=== PATIENT | male | born 1965 | race Caucasian/White ===

== ENCOUNTER 2021-11-05 06:56 | Inpatient (IN) | payer MEDICARE, MEDICAID ==
[~2021-11-05] VITALS: Ht 172.7 cm; Wt 103.9 kg
[2021-11-05] MEDS ORDERED: SODIUM CHLORIDE 0.9% 500 ML IV ONE (07:30)
[2021-11-05 08:11] LABS: BASOPHILS % 0.3 % (0.0-2.0); EOSINOPHILS % 0.1 % (0.0-5.0); LYMPHOCYTES % 9.6 % (20.0-50.0); MEAN CORPUSCULAR VOLUME 96.5 fL (80.0-94.0); MONOCYTES % 2.9 % (2.0-8.0); NEUTROPHILS % 87.1 % (40.0-76.0); PLATELET 123 x1000/uL (130-400); RED BLOOD CELL COUNT 1.83 mill/uL (4.7-6.1); RED CELL DISTRIBUTION WIDTH 18.3 % (11.6-14.6)
[2021-11-05 08:15] LABS: CHLORIDE 103 mEq/L (98-107)
[2021-11-05 08:16] LABS: HEMATOCRIT. 17.7 % (42.0-52.0); HEMOGLOBIN. 5.5 g/dL (14.0-18.0)
[2021-11-05 08:17] LABS: INR 1.8; PROTHROMBIN TIME 18.1 sec (9.6-11.0)
[2021-11-05 08:19] LABS: ETHANOL BLOOD < 10 mg/dL
[2021-11-05 08:23] LABS: CREATINE KINASE 124 IU/L (39-308)
[2021-11-05] MEDS ORDERED: VANCOMYCIN 1 G PREMIX 200 ML IV ONE (08:30)
[2021-11-05] MEDS ORDERED: PIPERACILLIN/TAZ 3.375G PREMIX 50 ML IV ONE (08:30)
[2021-11-05] MEDS ORDERED: NOREPINEPHRINE 8MG/250ML PMX 250 ML IV ONE (09:45)
[2021-11-05] MEDS ORDERED: CALCIUM GLUCONATE 1,000 MG in DEXT 5% WATER 100 ML IV ONE (10:30)
[2021-11-05] MEDS ORDERED: DEXTROSE 50% WATER 50ML SYRINGE IV ONE (10:30)
[2021-11-05] MEDS ORDERED: INSULIN REGULAR (HUMULIN R) 300UNITS/3ML VIAL IV ONE (10:30)
[2021-11-05] MEDS ORDERED: SODIUM BICARBONATE 8.4% 1 MEQ/ML 50ML SYR IV ONE (10:30)
[2021-11-05] MEDS: NOREPINEPHRINE 8 MG in DEXTROSE 5% WATER 250 ML IV PRN ×2 (10:34→17:57)
[2021-11-05] MEDS ORDERED: DEXTROSE 50% WATER 50ML SYRINGE IV PRN (12:15)
[2021-11-05] MEDS ORDERED: SODIUM CHLORIDE 0.9% 1,000 ML IV SCH (12:15)
[2021-11-05] MEDS ORDERED: ACETAMINOPHEN 325MG TABLET PO PRN (12:15)
[2021-11-05] MEDS ORDERED: CLONIDINE 0.1MG TABLET PO PRN (12:15)
[2021-11-05] MEDS ORDERED: ONDANSETRON HCL 4MG/2ML INJ IV PRN (12:15)
[2021-11-05] MEDS ORDERED: IPRATROPIUM/ALBUTEROL 0.5-3(2.5)MG/3ML NEB HHN PRN (12:15)
[2021-11-05] MEDS ORDERED: DIPHENHYDRAMINE 50MG/ML VIAL IV PRN (12:15)
[2021-11-05] MEDS ORDERED: AZITHROMYCIN 500MG/250ML 250 ML IV NR (12:30)
[2021-11-05] MEDS: BLOOD SUGAR DIAGNOSTIC STRIP TEST SCH ×3 (13:00→21:00)
[2021-11-05] MEDS ORDERED: CEFTRIAXONE 1 G PREMIX 50 ML IV NR (13:00)
[2021-11-05] MEDS: INSULIN LISPRO 100 UNITS/ML SUBCUT SCH ×3 (13:20→21:00)
[2021-11-05] MEDS ORDERED: SODIUM BICARBONATE 8.4% 1 MEQ/ML 50ML SYR IV NR (13:30)
[2021-11-05] MEDS: SODIUM BICARBONATE 150 MEQ in DEXTROSE 5% WATER 1,000 ML IV SCH (14:24)
[2021-11-05] MEDS ORDERED: PHENYLEPHRINE 100 MG in DEXT 5% WATER 240 ML IV PRN ×2 (14:45→17:45)
[2021-11-05 15:44] LABS: HEPATITIS B SURFACE ANTIGEN NEGATIVE
[2021-11-05] MEDS ORDERED: PANTOPRAZOLE 80 MG in SODIUM CHLORIDE 0.9% 100 ML IV SCH (18:45)
[2021-11-05] MEDS: OCTREOTIDE 1,000 MCG in SODIUM CHLORIDE 0.9% 100 ML IV PRN (18:59)
[2021-11-05 21:31] LABS: BASOPHILS % 0.2 % (0.0-2.0); HEMATOCRIT. 30.9 % (42.0-52.0); HEMOGLOBIN. 10.2 g/dL (14.0-18.0); LYMPHOCYTES % 7.2 % (20.0-50.0); MEAN CORPUSCULAR VOLUME 90.3 fL (80.0-94.0); MEAN PLATELET VOLUME 10.3 fl (7.4-10.4); MONOCYTES % 5.3 % (2.0-8.0); NEUTROPHILS % 87.3 % (40.0-76.0); PLATELET 109 x1000/uL (130-400); RED BLOOD CELL COUNT 3.42 mill/uL (4.7-6.1); RED CELL DISTRIBUTION WIDTH 15.9 % (11.6-14.6)
[2021-11-05 22:33] LABS: CHLORIDE 101 mEq/L (98-107)
[2021-11-05] MEDS ORDERED: NOREPINEPHRINE 8 MG in DEXTROSE 5% WATER 250 ML IV PRN (23:00)
[2021-11-06] VITALS (65 sets, daily range): BP systolic 85–173; BP diastolic 33–78
[2021-11-06 05:38] LABS: CHLORIDE 97 mEq/L (98-107)
[2021-11-06 05:39] LABS: BASOPHILS % 0.2 % (0.0-2.0); EOSINOPHILS % 0.3 % (0.0-5.0); HEMATOCRIT. 26.9 % (42.0-52.0); LYMPHOCYTES % 7.2 % (20.0-50.0); MEAN CORPUSCULAR HEMOGLOBIN 30.3 pg (28.0-32.0); MEAN CORPUSCULAR VOLUME 90.3 fL (80.0-94.0); MONOCYTES % 6.3 % (2.0-8.0); PLATELET 150 x1000/uL (130-400); RED BLOOD CELL COUNT 2.98 mill/uL (4.7-6.1); RED CELL DISTRIBUTION WIDTH 15.6 % (11.6-14.6)
[2021-11-06 05:44] LABS: PHOSPHORUS 5.7 mg/dL (2.5-4.9); TOTAL IRON BINDING CAPACITY 215 ug/dL (250-450)
[2021-11-06 07:48] LABS: FOLIC ACID (FOLATE) SERUM > 20.00 ng/mL (>5.38); VITAMIN B12 SERUM > 2000.0 pg/mL (211-911)
[2021-11-06] MEDS ORDERED: PANTOPRAZOLE SODIUM 40 MG/VIAL IV SCH (09:00)
[2021-11-06] MEDS ORDERED: FOLI1TAB63 PO (12:15)
[2021-11-06] MEDS ORDERED: ATOR20TA65 PO (12:16)
[2021-11-06] MEDS ORDERED: ISON300T19 PO (12:17)
[2021-11-06] MEDS ORDERED: TRAZ-251 PO (12:18)
[2021-11-06] MEDS ORDERED: PYRI50CA PO (12:18)
[2021-11-06] MEDS ORDERED: SEVE800T8 MT (12:19)
[2021-11-06] MEDS: BLOOD SUGAR DIAGNOSTIC STRIP TEST SCH ×3 (12:50→21:40)
[2021-11-06] MEDS ORDERED: AZITHROMYCIN 500 MG in DEXT 5% WATER 250 ML IV SCH (13:00)
[2021-11-06] MEDS ORDERED: CEFTRIAXONE 1,000 MG in DEXTROSE 5% WATER 50 ML IV SCH (13:00)
[2021-11-06] MEDS: INSULIN LISPRO 100 UNITS/ML SUBCUT SCH ×3 (13:20→21:00)
[2021-11-06] MEDS: OCTREOTIDE 1,000 MCG in SODIUM CHLORIDE 0.9% 100 ML IV PRN (13:56)
[2021-11-06] MEDS: CEFTRIAXONE 1,000 MG in DEXTROSE 5% WATER 50 ML IV SCH (13:56)
[2021-11-06] MEDS: AZITHROMYCIN 500 MG in DEXT 5% WATER 250 ML IV SCH (13:56)
[2021-11-06] MEDS: SODIUM BICARBONATE 150 MEQ in DEXTROSE 5% WATER 1,000 ML IV SCH (13:56)
[2021-11-06] MEDS: PHYTONADIONE 10MG/ML AMP SUBCUT SCH (13:57)
[2021-11-06 14:41] LABS: BG BASE EXCESS 0.9 mmol/L (-2.0-2.0); BG CARBOXYHEMOGLOBIN 0.7 % (0.5-1.5); BG DEOXYHEMOGLOBIN 7.9 % (0.0-5.0); BG FRACTION INSPIRED OXYGEN 21; BG HCO3 ACT 24.1 mmol/L (22.0-26.0); BG METHEMOGLOBIN 0.4 % (0.0-1.5); BG PCO2 32.1 mmHg (35.0-45.0); BG PH 7.493 (7.350-7.450); BG PO2 66.2 mmHg (75.0-100.0); BG SAMPLE SITE RIGHT RADIAL; BG VENT MODE ROOM AIR
[2021-11-06 16:05] LABS: HEMATOCRIT 22.7 % (42.0-52.0); HEMOGLOBIN 7.6 g/dL (14.0-18.0)
[2021-11-06 16:16] LABS: INR 2.2; PROTHROMBIN TIME 21.9 sec (9.6-11.0)
[2021-11-06] MEDS: PANTOPRAZOLE SODIUM 40 MG/VIAL IV SCH (18:01)
[2021-11-06 19:52] LABS: HEMOGLOBIN 6.6 g/dL (14.0-18.0)
[2021-11-06 19:53] LABS: HEMATOCRIT 19.5 % (42.0-52.0)
[2021-11-07] VITALS (90 sets, daily range): BP systolic 88–154; BP diastolic 36–71
[2021-11-07 06:06] LABS: HEMATOCRIT 26.3 % (42.0-52.0); HEMOGLOBIN 8.9 g/dL (14.0-18.0)
[2021-11-07] MEDS: OCTREOTIDE 1,000 MCG in SODIUM CHLORIDE 0.9% 100 ML IV PRN (08:16)
[2021-11-07] MEDS: BLOOD SUGAR DIAGNOSTIC STRIP TEST SCH ×4 (08:17→20:24)
[2021-11-07] MEDS: PHYTONADIONE 10MG/ML AMP SUBCUT SCH (08:17)
[2021-11-07] MEDS: INSULIN LISPRO 100 UNITS/ML SUBCUT SCH ×4 (08:17→20:24)
[2021-11-07] MEDS: PANTOPRAZOLE SODIUM 40 MG/VIAL IV SCH ×2 (08:17→17:27)
[2021-11-07 12:39] LABS: HEMATOCRIT 25.9 % (42.0-52.0); HEMOGLOBIN 8.8 g/dL (14.0-18.0)
[2021-11-07] MEDS: AZITHROMYCIN 500 MG in DEXT 5% WATER 250 ML IV SCH (13:24)
[2021-11-07] MEDS: CEFTRIAXONE 1,000 MG in DEXTROSE 5% WATER 50 ML IV SCH (13:24)
[2021-11-07] MEDS: SODIUM BICARBONATE 150 MEQ in DEXTROSE 5% WATER 1,000 ML IV SCH (13:33)
[2021-11-07] MEDS ORDERED: LORAZEPAM 2MG/ML CPJ IV PRN (16:15)
[2021-11-07] MEDS ORDERED: LEVETIRACETAM 500 MG in SODIUM CHLORIDE 0.9% 100 ML IV SCH (16:15)
[2021-11-07 16:26] LABS: BG BASE EXCESS 0.4 mmol/L (-2.0-2.0); BG CARBOXYHEMOGLOBIN 0.3 % (0.5-1.5); BG DEOXYHEMOGLOBIN 3.9 % (0.0-5.0); BG FRACTION INSPIRED OXYGEN 28; BG HCO3 ACT 24.5 mmol/L (22.0-26.0); BG METHEMOGLOBIN 0.3 % (0.0-1.5); BG OXYGEN SATURATION 96.1 % (92.0-98.5); BG OXYHEMOGLOBIN 95.5 % (94.0-97.0); BG PCO2 37.4 mmHg (35.0-45.0); BG PH 7.434 (7.350-7.450); BG SAMPLE SITE RIGHT RADIAL; BG TOTAL HEMOGLOBIN 9.6 g/dL (12.0-18.0); BG VENT MODE NASAL CANNULA
[2021-11-07 19:44] LABS: HEMATOCRIT 26.1 % (42.0-52.0); HEMOGLOBIN 8.6 g/dL (14.0-18.0)
[2021-11-07] MEDS: IPRATROPIUM/ALBUTEROL 0.5-3(2.5)MG/3ML NEB HHN SCH (20:21)
[2021-11-07] MEDS: LEVETIRACETAM 500MG PREMIX 100 ML IV SCH (20:24)
[2021-11-07] MEDS ORDERED: PANTOPRAZOLE SODIUM 40 MG/VIAL IV SCH (21:00)
[2021-11-08] VITALS (101 sets, daily range): BP systolic 75–137; BP diastolic 36–68
[2021-11-08 01:22] LABS: HEMATOCRIT 24.1 % (42.0-52.0); HEMOGLOBIN 8.3 g/dL (14.0-18.0)
[2021-11-08] MEDS: IPRATROPIUM/ALBUTEROL 0.5-3(2.5)MG/3ML NEB HHN SCH ×3 (02:16→14:29)
[2021-11-08 06:21] LABS: INR 1.6; PROTHROMBIN TIME 16.5 sec (9.6-11.0)
[2021-11-08] MEDS ORDERED: POTASSIUM CHLORIDE INJ 40 MEQ in DEXT 5% WATER 500 ML IV ONE (07:00)
[2021-11-08] MEDS: OCTREOTIDE 1,000 MCG in SODIUM CHLORIDE 0.9% 100 ML IV PRN (07:11)
[2021-11-08] MEDS: BLOOD SUGAR DIAGNOSTIC STRIP TEST SCH ×4 (07:58→20:13)
[2021-11-08] MEDS: INSULIN LISPRO 100 UNITS/ML SUBCUT SCH ×4 (07:58→20:13)
[2021-11-08] MEDS: KCL 20MEQ/100ML PREMIX 100 ML IV SCH ×2 (08:03→10:38)
[2021-11-08] MEDS: LEVETIRACETAM 500MG PREMIX 100 ML IV SCH ×2 (08:22→20:13)
[2021-11-08] MEDS: PANTOPRAZOLE SODIUM 40 MG/VIAL IV SCH (09:00)
[2021-11-08] MEDS ORDERED: CALCIUM GLUCONATE 1,000 MG in DEXT 5% WATER 90 ML IV ONE (09:00)
[2021-11-08] MEDS: PHYTONADIONE 10MG/ML AMP SUBCUT SCH (09:01)
[2021-11-08] MEDS ORDERED: MIDAZOLAM HCL 5 MG/5 ML VIAL ONE (09:55)
[2021-11-08] MEDS ORDERED: SIMETHICONE 40 MG/0.6 ML 30ML ONE (09:56)
[2021-11-08] MEDS ORDERED: FENTANYL CITRATE/PF 50MCG/ML 2ML VIAL ONE (09:56)
[2021-11-08] MEDS ORDERED: CALCIUM GLUCONATE 1GM PREMIX 50 ML IV SCH (10:00)
[2021-11-08] MEDS ORDERED: MIDAZOLAM HCL 5 MG/5 ML VIAL IV PRN (10:16)
[2021-11-08 11:42] LABS: BASOPHILS % 0.5 % (0.0-2.0); EOSINOPHILS % 3.4 % (0.0-5.0); HEMATOCRIT. 23.6 % (42.0-52.0); MEAN CORPUSCULAR HEMOGLOBIN 30.5 pg (28.0-32.0); MEAN CORPUSCULAR VOLUME 90.6 fL (80.0-94.0); MEAN PLATELET VOLUME 10.7 fl (7.4-10.4); MONOCYTES % 6.2 % (2.0-8.0); NEUTROPHILS % 75.9 % (40.0-76.0); RED BLOOD CELL COUNT 2.61 mill/uL (4.7-6.1); RED CELL DISTRIBUTION WIDTH 15.2 % (11.6-14.6)
[2021-11-08] MEDS: SODIUM BICARBONATE 150 MEQ in DEXTROSE 5% WATER 1,000 ML IV SCH (12:55)
[2021-11-08] MEDS: CEFTRIAXONE 1,000 MG in DEXTROSE 5% WATER 50 ML IV SCH (13:00)
[2021-11-08] MEDS: AZITHROMYCIN 500 MG in DEXT 5% WATER 250 ML IV SCH (13:00)
[2021-11-08 20:27] LABS: HEMOGLOBIN 8.4 g/dL (14.0-18.0)
[2021-11-09] VITALS (40 sets, daily range): BP systolic 88–148; BP diastolic 38–72
[2021-11-09 06:31] LABS: BASOPHILS % 0.6 % (0.0-2.0); EOSINOPHILS % 5.3 % (0.0-5.0); HEMATOCRIT. 23.3 % (42.0-52.0); MEAN CORPUSCULAR HEMOGLOBIN 31.2 pg (28.0-32.0); MEAN CORPUSCULAR VOLUME 90.2 fL (80.0-94.0); MEAN PLATELET VOLUME 10.5 fl (7.4-10.4); MONOCYTES % 8.3 % (2.0-8.0); NEUTROPHILS % 73.8 % (40.0-76.0); RED BLOOD CELL COUNT 2.58 mill/uL (4.7-6.1); RED CELL DISTRIBUTION WIDTH 15.3 % (11.6-14.6)
[2021-11-09 06:52] LABS: PHOSPHORUS 4.7 mg/dL (2.5-4.9)
[2021-11-09 06:57] LABS: PLATELET 32 x1000/uL (130-400)
[2021-11-09] MEDS ORDERED: POTASSIUM CHLORIDE 20MEQ TABLET SR PO SCH (08:00)
[2021-11-09] MEDS: BLOOD SUGAR DIAGNOSTIC STRIP TEST SCH ×4 (08:18→21:08)
[2021-11-09] MEDS: INSULIN LISPRO 100 UNITS/ML SUBCUT SCH ×4 (08:18→21:00)
[2021-11-09] MEDS: IPRATROPIUM/ALBUTEROL 0.5-3(2.5)MG/3ML NEB HHN SCH ×3 (08:41→21:24)
[2021-11-09] MEDS: PANTOPRAZOLE SODIUM 40 MG/VIAL IV SCH (08:46)
[2021-11-09] MEDS: LEVETIRACETAM 500MG PREMIX 100 ML IV SCH ×2 (08:47→21:08)
[2021-11-09] MEDS: SODIUM BICARBONATE 150 MEQ in DEXTROSE 5% WATER 1,000 ML IV SCH (08:48)
[2021-11-09] MEDS: DEXT 5%/0.9% NACL 1,000 ML IV SCH (10:00)
[2021-11-09] MEDS ORDERED: KCL 20MEQ/100ML PREMIX 100 ML IV SCH (10:00)
[2021-11-09] MEDS: MIDODRINE HCL 2.5MG TABLET PO SCH ×2 (13:00→17:00)
[2021-11-09 13:05] LABS: PLATELET 31 x1000/uL (130-400)
[2021-11-09] MEDS: PROPRANOLOL HCL 10MG TABLET PO SCH (17:00)
[2021-11-10] VITALS (12 sets, daily range): BP systolic 110–144; BP diastolic 47–63
[2021-11-10] MEDS: IPRATROPIUM/ALBUTEROL 0.5-3(2.5)MG/3ML NEB HHN SCH ×4 (02:02→20:34)
[2021-11-10] MEDS: INSULIN LISPRO 100 UNITS/ML SUBCUT SCH ×4 (08:00→21:00)
[2021-11-10] MEDS: PROPRANOLOL HCL 10MG TABLET PO SCH ×3 (08:10→17:00)
[2021-11-10] MEDS: BLOOD SUGAR DIAGNOSTIC STRIP TEST SCH ×4 (08:16→21:58)
[2021-11-10 08:52] LABS: BASOPHILS % 1.1 % (0.0-2.0); HEMATOCRIT. 24.7 % (42.0-52.0); HEMOGLOBIN. 8.4 g/dL (14.0-18.0); LYMPHOCYTES % 12.1 % (20.0-50.0); MEAN CORPUSCULAR HEMOGLOBIN 30.9 pg (28.0-32.0); MEAN CORPUSCULAR VOLUME 90.6 fL (80.0-94.0); MEAN PLATELET VOLUME 10.4 fl (7.4-10.4); MONOCYTES % 7.8 % (2.0-8.0); RED BLOOD CELL COUNT 2.73 mill/uL (4.7-6.1); RED CELL DISTRIBUTION WIDTH 16.1 % (11.6-14.6)
[2021-11-10 08:55] LABS: PHOSPHORUS 6.4 mg/dL (2.5-4.9)
[2021-11-10 09:07] LABS: PLATELET 39 x1000/uL (130-400)
[2021-11-10] MEDS: PANTOPRAZOLE SODIUM 40 MG/VIAL IV SCH (10:38)
[2021-11-10] MEDS: DEXT 5%/0.9% NACL 1,000 ML IV SCH (10:38)
[2021-11-10] MEDS: MIDODRINE HCL 2.5MG TABLET PO SCH ×3 (10:38→17:00)
[2021-11-10] MEDS: LEVETIRACETAM 500MG PREMIX 100 ML IV SCH ×2 (10:39→21:00)
[2021-11-10] MEDS: POTASSIUM CHLORIDE 20MEQ TABLET SR PO SCH (21:01)
[2021-11-11] VITALS (11 sets, daily range): BP systolic 98–148; BP diastolic 52–82
[2021-11-11] MEDS: IPRATROPIUM/ALBUTEROL 0.5-3(2.5)MG/3ML NEB HHN SCH ×4 (02:28→21:12)
[2021-11-11 07:14] LABS: EOSINOPHILS % 6.3 % (0.0-5.0); HEMATOCRIT. 25.1 % (42.0-52.0); HEMOGLOBIN. 8.5 g/dL (14.0-18.0); LYMPHOCYTES % 11.5 % (20.0-50.0); MEAN CORPUSCULAR HEMOGLOBIN 31.5 pg (28.0-32.0); MEAN CORPUSCULAR VOLUME 92.9 fL (80.0-94.0); MEAN PLATELET VOLUME 9.9 fl (7.4-10.4); MONOCYTES % 8.1 % (2.0-8.0); NEUTROPHILS % 73.1 % (40.0-76.0); RED CELL DISTRIBUTION WIDTH 16.8 % (11.6-14.6)
[2021-11-11 07:19] LABS: PHOSPHORUS 5.3 mg/dL (2.5-4.9)
[2021-11-11] MEDS: BLOOD SUGAR DIAGNOSTIC STRIP TEST SCH ×4 (07:30→20:43)
[2021-11-11 08:00] LABS: PLATELET 45 x1000/uL (130-400)
[2021-11-11] MEDS: LEVETIRACETAM 500MG PREMIX 100 ML IV SCH ×2 (09:57→20:34)
[2021-11-11] MEDS: PROPRANOLOL HCL 10MG TABLET PO SCH ×3 (09:58→17:00)
[2021-11-11] MEDS: MIDODRINE HCL 2.5MG TABLET PO SCH ×3 (09:58→17:27)
[2021-11-11] MEDS: POTASSIUM CHLORIDE 20MEQ TABLET SR PO SCH (09:58)
[2021-11-11] MEDS: DEXT 5%/0.9% NACL 1,000 ML IV SCH (09:59)
[2021-11-11] MEDS: INSULIN LISPRO 100 UNITS/ML SUBCUT SCH ×4 (10:00→20:43)
[2021-11-11] MEDS: PANTOPRAZOLE SODIUM 40 MG/VIAL IV SCH (10:01)
[2021-11-12] VITALS (7 sets, daily range): BP systolic 98–144; BP diastolic 47–68
[2021-11-12] MEDS: IPRATROPIUM/ALBUTEROL 0.5-3(2.5)MG/3ML NEB HHN SCH ×4 (02:31→19:56)
[2021-11-12 07:03] LABS: BASOPHILS % 1.2 % (0.0-2.0); EOSINOPHILS % 7.6 % (0.0-5.0); HEMATOCRIT. 26.1 % (42.0-52.0); HEMOGLOBIN. 8.7 g/dL (14.0-18.0); LYMPHOCYTES % 14.8 % (20.0-50.0); MEAN CORPUSCULAR HEMOGLOBIN 30.8 pg (28.0-32.0); MEAN CORPUSCULAR VOLUME 92.7 fL (80.0-94.0); MONOCYTES % 6.8 % (2.0-8.0); NEUTROPHILS % 69.6 % (40.0-76.0); PLATELET 61 x1000/uL (130-400); RED BLOOD CELL COUNT 2.81 mill/uL (4.7-6.1); RED CELL DISTRIBUTION WIDTH 16.7 % (11.6-14.6)
[2021-11-12] MEDS: BLOOD SUGAR DIAGNOSTIC STRIP TEST SCH ×4 (07:30→21:20)
[2021-11-12 07:39] LABS: PHOSPHORUS 6.1 mg/dL (2.5-4.9)
[2021-11-12] MEDS: INSULIN LISPRO 100 UNITS/ML SUBCUT SCH ×4 (08:00→21:00)
[2021-11-12] MEDS: MIDODRINE HCL 2.5MG TABLET PO SCH ×3 (09:00→17:00)
[2021-11-12] MEDS: LEVETIRACETAM 500MG PREMIX 100 ML IV SCH ×2 (09:44→21:20)
[2021-11-12] MEDS: PANTOPRAZOLE SODIUM 40 MG/VIAL IV SCH (09:46)
[2021-11-12] MEDS: PROPRANOLOL HCL 10MG TABLET PO SCH ×3 (09:47→17:00)
[2021-11-12] MEDS: POTASSIUM CHLORIDE 20MEQ TABLET SR PO SCH (09:47)
[2021-11-12 17:30] LABS: INR 1.2; PROTHROMBIN TIME 13.2 sec (9.6-11.0)
[2021-11-13] MEDS: IPRATROPIUM/ALBUTEROL 0.5-3(2.5)MG/3ML NEB HHN SCH ×3 (02:13→14:27)
[2021-11-13 04:00] VITALS: BP 130/64
[2021-11-13 07:30] LABS: BASOPHILS % 1.5 % (0.0-2.0); EOSINOPHILS % 7.2 % (0.0-5.0); HEMATOCRIT. 26.5 % (42.0-52.0); HEMOGLOBIN. 8.8 g/dL (14.0-18.0); MEAN CORPUSCULAR HEMOGLOBIN 30.8 pg (28.0-32.0); MEAN CORPUSCULAR VOLUME 92.9 fL (80.0-94.0); MEAN PLATELET VOLUME 10.9 fl (7.4-10.4); MONOCYTES % 7.9 % (2.0-8.0); NEUTROPHILS % 67.4 % (40.0-76.0); PLATELET 59 x1000/uL (130-400); RED BLOOD CELL COUNT 2.86 mill/uL (4.7-6.1); RED CELL DISTRIBUTION WIDTH 16.8 % (11.6-14.6)
[2021-11-13] MEDS ORDERED: LIDOCAINE HCL 1% 10 MG/ML 10ML VIAL ONE (07:43)
[2021-11-13] MEDS ORDERED: SODIUM BICARBONATE 4% (2.4MEQ) 5ML VIAL IV ONE (07:43)
[2021-11-13] MEDS: BLOOD SUGAR DIAGNOSTIC STRIP TEST SCH ×3 (07:47→17:02)
[2021-11-13] MEDS: INSULIN LISPRO 100 UNITS/ML SUBCUT SCH ×3 (07:47→17:02)
[2021-11-13 07:50] VITALS: BP 121/64
[2021-11-13 08:13] LABS: PHOSPHORUS 7.1 mg/dL (2.5-4.9)
[2021-11-13] MEDS: PANTOPRAZOLE SODIUM 40 MG/VIAL IV SCH (09:54)
[2021-11-13] MEDS: MIDODRINE HCL 2.5MG TABLET PO SCH ×3 (09:54→17:00)
[2021-11-13] MEDS: LEVETIRACETAM 500MG PREMIX 100 ML IV SCH (09:54)
[2021-11-13] MEDS: POTASSIUM CHLORIDE 20MEQ TABLET SR PO SCH (09:54)
[2021-11-13] MEDS: PROPRANOLOL HCL 10MG TABLET PO SCH ×3 (09:55→17:00)
[2021-11-13 12:00] VITALS: BP 115/57
[2021-11-13] MEDS ORDERED: LEVE500T98 MT (13:15)
[2021-11-13] MEDS ORDERED: MIDO2.5T PO (13:15)
[2021-11-13] MEDS ORDERED: PROP10TA10 PO (13:15)
[2021-11-13 16:00] VITALS: BP 92/51
[2021-11-13 17:55] VITALS: BP 117/59
[2021-11-13] MEDS ORDERED: PANTOPRAZOLE 40MG DR TABLET PO SCH (21:00)
[2021-11-13] MEDS ORDERED: LEVETIRACETAM 500MG TABLET PO SCH (21:00)
== END 2021-11-13 19:19 | disposition home or self-care (01) | DRG 871 ==
LOC: ER 07:28 → CVICU 10:00 → EDBEDREQSVC 10:02 → EDBEDREQ 10:02 → ENRESERV 11-06 07:15 → CVICU 11-06 10:02 → 5EST 11-09 18:29
PROVIDERS: ADMIT Internal Medicine; ATTEND Internal Medicine
PROC: 06HY33Z Insertion of Infusion Device into Lower Vein, Percutaneous Approach (ICD-10-PCS; principal; 2021-11-05)
PROC: B54BZZA Ultrasonography of Right Lower Extremity Veins, Guidance (ICD-10-PCS; 2021-11-05)
PROC: 06HY33Z Insertion of Infusion Device into Lower Vein, Percutaneous Approach (ICD-10-PCS; 2021-11-05)
PROC: B54CZZA Ultrasonography of Left Lower Extremity Veins, Guidance (ICD-10-PCS; 2021-11-05)
PROC: 30233K1 Transfusion of Nonautologous Frozen Plasma into Peripheral Vein, Percutaneous Approach (ICD-10-PCS; 2021-11-05)
PROC: 30233N1 Transfusion of Nonautologous Red Blood Cells into Peripheral Vein, Percutaneous Approach (ICD-10-PCS; 2021-11-05)
PROC: 30233R1 Transfusion of Nonautologous Platelets into Peripheral Vein, Percutaneous Approach (ICD-10-PCS; 2021-11-05)
PROC: 5A1D70Z Performance of Urinary Filtration, Intermittent, Less than 6 Hours Per Day (ICD-10-PCS; 2021-11-05)
PROC: 5A1D70Z Performance of Urinary Filtration, Intermittent, Less than 6 Hours Per Day (ICD-10-PCS; 2021-11-07)
PROC: 06L38CZ Occlusion of Esophageal Vein with Extraluminal Device, Via Natural or Artificial Opening Endoscopic (ICD-10-PCS; 2021-11-08)
PROC: 5A1D70Z Performance of Urinary Filtration, Intermittent, Less than 6 Hours Per Day (ICD-10-PCS; 2021-11-08)
PROC: 5A1D70Z Performance of Urinary Filtration, Intermittent, Less than 6 Hours Per Day (ICD-10-PCS; 2021-11-10)
PROC: 0W9G3ZZ Drainage of Peritoneal Cavity, Percutaneous Approach (ICD-10-PCS; 2021-11-13)
PROC: 5A1D70Z Performance of Urinary Filtration, Intermittent, Less than 6 Hours Per Day (ICD-10-PCS; 2021-11-13)
DX: A41.9 Sepsis, unspecified organism (principal); E43 Unspecified severe protein-calorie malnutrition; G92.8 Other toxic encephalopathy; J18.9 Pneumonia, unspecified organism; R65.21 Severe sepsis with septic shock; N18.6 End stage renal disease; J96.01 Acute respiratory failure with hypoxia; R57.8 Other shock; I85.01 Esophageal varices with bleeding; I21.4 Non-ST elevation (NSTEMI) myocardial infarction; D68.4 Acquired coagulation factor deficiency; K76.6 Portal hypertension; I12.0 Hypertensive chronic kidney disease with stage 5 chronic kidney disease or end stage renal disease; E11.22 Type 2 diabetes mellitus with diabetic chronic kidney disease; E87.5 Hyperkalemia; F10.10 Alcohol abuse, uncomplicated; Y90.9 Presence of alcohol in blood, level not specified; D69.6 Thrombocytopenia, unspecified; D53.9 Nutritional anemia, unspecified; K42.9 Umbilical hernia without obstruction or gangrene; Z20.822 Contact with and (suspected) exposure to COVID-19; E87.6 Hypokalemia; D50.0 Iron deficiency anemia secondary to blood loss (chronic); K70.31 Alcoholic cirrhosis of liver with ascites; G40.909 Epilepsy, unspecified, not intractable, without status epilepticus; Z99.2 Dependence on renal dialysis; Z68.34 Body mass index [BMI] 34.0-34.9, adult; Z82.49 Family history of ischemic heart disease and other diseases of the circulatory system; Z83.3 Family history of diabetes mellitus; K52.9 Noninfective gastroenteritis and colitis, unspecified; K70.40 Alcoholic hepatic failure without coma; Z95.828 Presence of other vascular implants and grafts; K29.00 Acute gastritis without bleeding
CPT/HCPCS: 36415; 36600; 49083; 70551; 71045; 74176; 76700; 76705; 80048; 80053; 80076; 80320; 82140; 82248; 82375; 82550; 82607; 82746; 82805; 82962; 83036; 83540; 83550; 83605; 83735; 83880; 84100; 84145; 84443; 84484; 85014; 85018; 85025; 85049; 86705; 86709; 86803; 86850; 86900; 86920; 86927; 87340; 87426; 93005; 93306; 93970; 94640; 99291; A6261; C9113; J0456; J0610; J0696; J1815; J1953; J2060; J2250; J2354; J2370; J2405; J2543; J3010; J3370; J3430; J3480; J3490; J7040; J7042; J7050; J7060; J7070; P9016; P9017; P9034; G0480